=== PATIENT | male | born 1980 | race Caucasian/White ===

== ENCOUNTER → 2021-01-02 | Day surgery (SDC) | payer OTHER ==
[~2021-01-02] VITALS: Ht 177.8 cm; Wt 136.1 kg
[~2021-01-02] MED LIST: AMMONIUM LAC CREAM TOP; BASAGLAR K100 UNIT/1 SQ; BENAZEPRIL HCL20 MG PO; BUPRENORPHIN-N1 EACH PO; BUPRENORPHIN-N1 EACH SL; CLOTRIMAZOLE CREAM TOP; ENOXAPARIN40 MG/0.4 SC; LEVEMIR100 UNIT/1 SQ; POVIDONE TOP; POVIDONE-IOD28.35 GM TOP
== END | disposition home or self-care (01) ==
LOC: OR 06:08
DX: E11.621 Type 2 diabetes mellitus with foot ulcer (principal); L97.519 Non-pressure chronic ulcer of other part of right foot with unspecified severity; M10.9 Gout, unspecified; I10 Essential (primary) hypertension; E11.42 Type 2 diabetes mellitus with diabetic polyneuropathy; F12.90 Cannabis use, unspecified, uncomplicated; E66.9 Obesity, unspecified; F41.0 Panic disorder [episodic paroxysmal anxiety]; Z68.43 Body mass index [BMI] 50.0-59.9, adult; Z89.431 Acquired absence of right foot; Z88.8 Allergy status to other drugs, medicaments and biological substances; Z53.8 Procedure and treatment not carried out for other reasons
CPT/HCPCS: 82962

== ENCOUNTER → 2021-01-23 | Day surgery (SDC) | payer OTHER ==
[~2021-01-23] VITALS: Ht 177.8 cm; Wt 151.0 kg
== END | disposition home or self-care (01) ==
LOC: OR 05:46
DX: M21.961 Unspecified acquired deformity of right lower leg (principal); E11.42 Type 2 diabetes mellitus with diabetic polyneuropathy; L84 Corns and callosities; L85.9 Epidermal thickening, unspecified; I10 Essential (primary) hypertension; E66.01 Morbid (severe) obesity due to excess calories; M10.9 Gout, unspecified; F41.0 Panic disorder [episodic paroxysmal anxiety]; Z79.4 Long term (current) use of insulin; Z79.899 Other long term (current) drug therapy; Z20.822 Contact with and (suspected) exposure to COVID-19
CPT/HCPCS: 73630; 82962; J1100; J2001; J2250; J2405; J2704; J2795; J3010; J3370; J7030; J7120; Q4133; U0002

== ENCOUNTER → 2022-05-20 | Outpatient (CLI) | payer OTHER | LOC: KOH-I 15:57 | DX: M79.671 Pain in right foot (principal); M19.071 Primary osteoarthritis, right ankle and foot | CPT/HCPCS: 73630 ==